=== PATIENT | male | born 1950 | race Caucasian/White ===

== ENCOUNTER 2018-06-15 00:50 | Emergency (ER) | payer MEDICARE ==
[2018-06-15 00:54] VITALS: BP 186/79; PULSE 64; RESP 16; TEMP 97.6
[2018-06-15] MEDS ORDERED: KETOROLAC 30 MG/ML 1 ML VIAL IM STA (01:08)
[2018-06-15] MEDS ORDERED: ACET/COD 300 MG/30 MG STARTER PACK 6 TAB BTL PO STA (01:09)
[2018-06-15] MEDS ORDERED: CYCLOBENZAPRINE 10MG STARTER 3 TAB BTL PO STA (01:09)
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
== END 2018-06-15 01:46 | disposition home or self-care (01) ==
LOC: EC 00:50
DX: M62.838 Other muscle spasm (principal); M54.6 Pain in thoracic spine; M25.511 Pain in right shoulder; K21.9 Gastro-esophageal reflux disease without esophagitis; E78.5 Hyperlipidemia, unspecified; I10 Essential (primary) hypertension; E11.40 Type 2 diabetes mellitus with diabetic neuropathy, unspecified; Z85.46 Personal history of malignant neoplasm of prostate; Z85.828 Personal history of other malignant neoplasm of skin; Z85.07 Personal history of malignant neoplasm of pancreas; Z85.21 Personal history of malignant neoplasm of larynx; Z87.891 Personal history of nicotine dependence; Z98.890 Other specified postprocedural states; Z79.4 Long term (current) use of insulin; Z79.82 Long term (current) use of aspirin; Z79.899 Other long term (current) drug therapy
CPT/HCPCS: 99283; 96372; J1885

== ENCOUNTER → 2022-12-01 | Outpatient (CLI) | payer MEDICARE ==
--- NOTE | 2022-12-02 08:01 | CT ---
EXAMINATION TYPE: CT facial bones wo con DATE OF EXAM: 12/01/2022 COMPARISON: None HISTORY: CHRONIC MAXILLARY SINUSITIS x6-8months CT DLP: 795.5 mGycm CONTRAST: 0 mL of Isovue 300 The paranasal sinuses are examined in the axial plane at 2 mm thick sections. Reconstructed images i n the coronal plane were obtained. There is dental amalgam scatter artifact The maxillary sinuses are clear. The ethmoid air cells are clear. The sphenoid sinuses are clear. The frontal sinuses are clear. The septum is evaluated. There is septal deviation to the left. The ostiomeatal units are patent. Temporal mandibular junctions are normal There appears to be prior right neck surgery. Large calcification is in the right carotid region solomon uring 1.8 cm. This is in close approximation with carotid artery calcification and could be associate d. Carotid sheath tumor is in the differential. There is a small rounded density within the clivus posterior to the sphenoid sinuses may be a small b one. IMPRESSIONS: 1. No suspicious changes for acute or chronic sinusitis. 2. Large calcification right carotid sheath region. Correlate for stenosis or occlusion of the right carotid artery.
== END | disposition home or self-care (01) ==
LOC: RADCTMAIN 16:29
PROVIDERS: ATTEND Internal Medicine Geriatric Medicine
DX: J32.0 Chronic maxillary sinusitis (principal)
CPT/HCPCS: 70486

== ENCOUNTER → 2024-04-11 | Outpatient (CLI) | payer MEDICARE ==
[2024-04-11 14:39] LABS: Basophils # (A) 0.04 X 10*3/uL (0.00-0.10); Basophils % (A) 0.6 %; Eosinophils # (A) 0.12 X 10*3/uL (0.04-0.35); Eosinophils % (A) 1.7 %; HCT 40.9 % (39.6-50.0); HGB 13.5 g/dL (13.0-17.0); Lymphocytes # (A) 1.44 X 10*3/uL (0.90-5.00); Lymphocytes % (A) 19.8 %; MCH 32.1 pg (27.0-32.0); MCV 97.1 FL (80.0-97.0); Mean Platelet Volume 10.4 FL (9.5-12.2); Monocytes # (A) 0.81 X 10*3/uL (0.20-1.00); Monocytes % (A) 11.2 %; NRBC Per 100 WBC 0 X 10*3/uL (0.00-0.01); Neutrophils # (A) 4.83 X 10*3/uL (1.80-7.70); Neutrophils % (A) 66.4 %; Platelet Count 207 X 10*3/uL (140-440); RBC 4.21 X 10*6/uL (4.40-5.60); RDW 14.1 % (11.5-14.5); WBC 7.26 X 10*3/uL (4.50-10.00)
[2024-04-11 15:27] LABS: ALT 18 U/L (10-49); AST 28 U/L (14-35); Albumin 4.4 g/dL (3.8-4.9); Albumin/Globulin Ratio 1.76 Ratio (1.60-3.17); Alkaline Phosphatase 89 U/L (41-126); BUN/Creat Ratio 13.78 Ratio (12.00-20.00); Blood Urea Nitrogen 12.4 mg/dL (9.0-27.0); Carbon Dioxide 23.5 mmol/L (21.6-31.8); Chloride 100 mmol/L (96-109); Globulin 2.5 g/dL (1.6-3.3); Glucose 122 mg/dL (70-110); Potassium 4.4 mmol/L (3.5-5.5); Sodium 138 mmol/L (135-145); Total Bilirubin 0.7 mg/dL (0.3-1.2); Total Protein 6.9 g/dL (6.2-8.2)
[2024-04-11 15:28] LABS: Prealbumin 23.5 mg/dL (18.0-42.0)
== END | disposition home or self-care (01) ==
LOC: LABWHC1 10:53
PROVIDERS: ATTEND Podiatrist
DX: Z01.812 Encounter for preprocedural laboratory examination (principal)
CPT/HCPCS: 36415; 80053; 83036; 84134; 85025